=== PATIENT | male | born 1955 | race Caucasian/White ===

== ENCOUNTER 2024-03-20 21:42 | Emergency (ER) | payer OTHER ==
[2024-03-20] MEDS ORDERED: NA CHLORIDE 0.9% 1,000 ML ONE (22:26)
[2024-03-20 22:52] LABS: Albumin 3.6 g/dL (3.4-5.0); Albumin/Globulin Ratio 0.8 (1.1-1.8); Bilirubin Total 0.7 mg/dL (0.2-1.0); Globulin 4.6 g/dL (2.3-3.5); Protein, Total 8.2 g/dL (6.4-8.2)
[2024-03-20 22:59] LABS: Absolute Eosinophils 0.2 K/uL (0-0.5); Absolute Lymphocytes (CBC) 2.1 K/uL (0.7-4.9); Absolute Monocytes 0.9 K/uL (0.1-1.3); Absolute Neutrophil 6.7 K/uL (1.8-8.0); Basophils % 0.3 % (0-1.3); Eosinophils % 1.7 % (0-4.4); Hematocrit 49.6 % (39.6-49.0); Hemoglobin 16.5 g/dL (13.6-17.9); Lymphocytes % 21.3 % (15.3-44.8); MCH 30.6 pg (27.0-35.0); MCHC 33.3 g/dL (32.0-36.0); MCV 92.1 fL (80-100); MPV 7.7 fL (7.6-11.3); Monocytes % 9.2 % (3.3-12.3); Neutrophils % 67.5 % (41.7-73.7); Platelets 261 thou/uL (152-406); RBC Red Blood Cell Count 5.39 M/uL (4.33-5.43); Red Cell Distribution Width 14.9 % (12.1-15.2)
--- NOTE | 2024-03-21 00:04 | ER ---
Nurse's Notes [facility] Name: Jonathan Woodson Age: 68 yrs Sex: Male : 1955 Arrival Date: 03/20/2024 Time: 21:42 Bed 6 Private MD: Diagnosis: Swallowing difficulty Presentation: 03/20 21:55 Chief complaint: Patient states: pt reports sore throat and difficultly swallowing. as6 Coronavirus screen: At this time, the client does not indicate any symptoms associated with coronavirus-19. Ebola Screen: No symptoms or risks identified at this time. Initial Sepsis Screen: Does the patient meet any 2 criteria? No. Patient's initial sepsis screen is negative. Does the patient have a suspected source of infection? No. Patient's initial sepsis screen is negative. Risk Assessment: Do you want to hurt yourself or someone else? Patient reports no desire to harm self or others. Onset of symptoms was March 18, 2024. 21:55 Acuity: MARGARITA 3 as6 21:55 Method Of Arrival: Ambulatory as6 Triage Assessment: 03/21 00:27 Respiratory: Onset: The symptoms/episode began/occurred gradually, the patient has mild ha1 shortness of breath. Historical: - Allergies: 03/20 21:58 No Known Allergies; as6 - PMHx: 21:58 Leukemia; Myocardial infarction; as6 - PSHx: 21:58 hip; hernia; Stented artery; as6 - Immunization history:: Adult Immunizations not up to date. - Infectious Disease History:: Denies. - Social history:: Smoking status: Patient reports the use of cigarette tobacco products, denies chronic smoking, but will smoke occasionally. Screenin:00 [facility] ED Fall Risk Assessment (Adult) History of falling in the last 3 months, ha1 including since admission No falls in past 3 months (0 pts) Confusion or Disorientation No (0 pts) Intoxicated or Sedated No (0 pts) Impaired Gait No (0 pts) Mobility Assist Device Used No (0 pt) Altered Elimination No (0 pt) Score/Fall Risk Level 0 - 2 = Low Risk Oriented to surroundings, Maintained a safe environment, Educated pt \T\ family on fall prevention, incl call for assistance when getting out of bed, Hourly rounding (assess needs \T\ fall precautionary measures) done. Abuse screen: Denies threats or abuse. Denies injuries from another. Nutritional screening: On. Tuberculosis screening: No symptoms or risk factors identified. Assessment: 21:59 General: Appears uncomfortable, Behavior is cooperative. Pain: Denies pain. Neuro: ha1 Level of Consciousness is awake, alert, obeys commands, Oriented to person, place, time, situation. Cardiovascular:. Cardiovascular: Patient's skin is warm and dry. Rhythm is irregular. Respiratory: Reports shortness of breath at rest on exertion Airway is patent Respiratory effort is even, unlabored, Respiratory pattern is regular, symmetrical, Derm: Skin is pink, warm \T\ dry. 23:14 Reassessment: Patient and/or family updated on plan of care and expected duration. Pain ha1 level reassessed. Patient is alert, oriented x 3, equal unlabored respirations, skin warm/dry/pink. 23:31 Reassessment: Patient appears in no apparent distress at this time. No changes from tm6 previously documented assessment. Vital Signs: 21:55 BP 142 / 77; Pulse 40; Resp 18; Temp 97.4; Pulse Ox 93% ; as6 21:57 Weight 132.45 kg; Height 5 ft. 10 in. ; Pain 9/10; as6 23:14 BP 117 / 73; Pulse 65; Resp 19 S; Pulse Ox 96% on R/A; ha1 23:31 BP 166 / 82; Pulse 71; Pulse Ox 93% on R/A; tm6 03/21 00:24 BP 156 / 92; Pulse 74; Resp 17 S; Pulse Ox 97% on R/A; ha1 03/20 21:57 Body Mass Index 41.90 (132.45 kg, 177.8 cm) as6 21:57 Pain Scale: Adult as6 ED Course: 03/20 21:46 Patient arrived in ED. ra3 21:54 Anh Shanks MD is Attending Physician. sp3 21:57 Triage completed. as6 21:57 Arm band placed on right wrist. as6 21:59 Patient has correct armband on for positive identification. Bed in low position. Call ha1 light in reach. Side rails up X 1. Adult w/ patient. 22:02 Joshua Dotson RN is Primary Nurse. tm6 22:25 Inserted saline lock: 20 gauge antecubital area, using aseptic technique. Blood ha1 collected. 22: CBC with Diff Sent. ha1 22:31 CMP Sent. ha1 23:20 CT Soft Tissue Neck W/contr In Process Unspecified. EDMS 03/21 00:04 Clint Lamar MD is Referral Physician. sp3 00:26 No provider procedures requiring assistance completed. IV discontinued, intact, ha1 bleeding controlled, No redness/swelling at site. Pressure dressing applied. 00:27 Provided Education on: follow up . ha1 Administered Medications: 03/20 22: Drug: NS 0.9% IV 1000 ml IV at 1 bolus Per protocol; 1000 mL bolus Route: IV; Rate: 1 ha1 bolus; Site: right antecubital; 03/21 00:28 Follow up: Response: No adverse reaction; IV Status: Completed infusion; IV Intake: ha1 1000ml Medication: 00: VIS not applicable for this client. ha1 Intake: 00:28 IV: 1000ml; Total: 1000ml. ha1 Outcome: 00:04 Discharge ordered by . sp3 00:26 Discharged to home ambulatory, with family, ha1 00:26 Condition: stable 00:26 Discharge instructions given to patient, family, Instructed on discharge instructions, follow up and referral plans. Demonstrated understanding of instructions, follow-up care, 00:28 Patient left the ED. ha1 Signatures: Dispatcher [employer] [facility] Anh Shanks MD MD sp3 Hermann Wadsworth RN RN as6 Carlotta De Los Santos RN RN ha1 Joshua Dotson RN RN tm6 Kymberly Dee 3 Corrections: (The following items were deleted from the chart) 03/20 23:15 21:59 Cardiovascular: Patient's skin is warm and dry. ha1 ha1
--- NOTE | 2024-03-21 00:04 | EDPHYS ---
Physician Documentation [facility] Name: Jonathan Woodson Age: 68 yrs Sex: Male : 1955 Arrival Date: 03/20/2024 Time: 21:42 Bed 6 Private MD: ED Physician Anh Shanks HPI: 03/20 22:20 This 68 yrs old Male presents to ER via Ambulatory with complaints of Mouth Swelling - sp3 throat swelling-no pain, Shortness Of Breath. 22:20 68-year-old male with history of prior leukemia in remission for 15 years, NM now sp3 presents to ED with chief complaint posterior tongue and throat swelling and edema leading to an inability to tolerate p.o. liquids and food for approximately 4 to 5 days. Patient states he is lost 12 to 14 pounds. She denies any significant pain just swelling. He denies any allergic reaction, prior anaphylaxis or allergic reaction, trauma, bleeding or any other symptoms. Remainder of ROS is negative. He also denies headache, chest pain, back pain, vomiting, diarrhea or any other symptoms.. Historical: - Allergies: 21:58 No Known Allergies; as6 - PMHx: 21:58 Leukemia; Myocardial infarction; as6 - PSHx: 21:58 hip; hernia; Stented artery; as6 - Immunization history:: Adult Immunizations not up to date. - Infectious Disease History:: Denies. - Social history:: Smoking status: Patient reports the use of cigarette tobacco products, denies chronic smoking, but will smoke occasionally. ROS: 22:21 Constitutional: Negative for fever, chills, and weight loss, Eyes: Negative for injury, sp3 pain, redness, and discharge, Cardiovascular: Negative for chest pain, palpitations, and edema, Respiratory: Negative for shortness of breath, cough, wheezing, and pleuritic chest pain, Abdomen/GI: Negative for abdominal pain, nausea, vomiting, diarrhea, and constipation, Back: Negative for injury and pain, MS/Extremity: Negative for injury and deformity, Skin: Negative for injury, rash, and discoloration, Neuro: Negative for headache, weakness, numbness, tingling, and seizure, Psych: Negative for depression, anxiety, suicide ideation, homicidal ideation, and hallucinations, Allergy/Immunology: Negative for hives, rash, and allergies, Endocrine: Negative for neck swelling, polydipsia, polyuria, polyphagia, and marked weight changes, Hematologic/Lymphatic: Negative for swollen nodes, abnormal bleeding, and unusual bruising, 22:21 All other systems are negative, Exam: 22:21 Constitutional: This is a well developed, well nourished patient who is awake, alert, sp3 and in no acute distress. Head/Face: Normocephalic, atraumatic. Eyes: Pupils equal round and reactive to light, extra-ocular motions intact. Lids and lashes normal. Conjunctiva and sclera are non-icteric and not injected. Cornea within normal limits. Periorbital areas with no swelling, redness, or edema. Chest/axilla: Normal chest wall appearance and motion. Nontender with no deformity. No lesions are appreciated. Cardiovascular: Regular rate and rhythm with a normal S1 and S2. No gallops, murmurs, or rubs. Normal PMI, no JVD. No pulse deficits. Respiratory: Lungs have equal breath sounds bilaterally, clear to auscultation and percussion. No rales, rhonchi or wheezes noted. No increased work of breathing, no retractions or nasal flaring. Abdomen/GI: Soft, non-tender, with normal bowel sounds. No distension or tympany. No guarding or rebound. No evidence of tenderness throughout. Back: No spinal tenderness. No costovertebral tenderness. Full range of motion. Skin: Warm, dry with normal turgor. Normal color with no rashes, no lesions, and no evidence of cellulitis. 22:21 ENT: Mild posterior swelling noted. No uvular shift.. 22:21 Neck: Lymphadenopathy noted bilaterally left slightly greater than right., Vital Signs: 21:55 BP 142 / 77; Pulse 40; Resp 18; Temp 97.4; Pulse Ox 93% ; as6 21:57 Weight 132.45 kg; Height 5 ft. 10 in. ; Pain 9/10; as6 23:14 BP 117 / 73; Pulse 65; Resp 19 S; Pulse Ox 96% on R/A; ha1 23:31 BP 166 / 82; Pulse 71; Pulse Ox 93% on R/A; tm6 03/21 00:24 BP 156 / 92; Pulse 74; Resp 17 S; Pulse Ox 97% on R/A; ha1 03/20 21:57 Body Mass Index 41.90 (132.45 kg, 177.8 cm) as6 21:57 Pain Scale: Adult as6 MDM: 03/20 22:02 Patient medically screened. sp3 22:22 Data reviewed: vital signs, nurses notes, lab test result(s), radiologic studies. ED sp3 course: 68-year-old male with neck swelling and posterior oropharynx swelling and inability to tolerate p.o. Differential diagnosis includes peritonsillar abscess, other mass effect given cancer history, allergic reaction, among others. I am not highly suspicious for NM, GI pathology, sepsis, shock or any other critical illness. Workup will include laboratory values and CT scan of the neck with IV contrast. Patient is n.p.o. pending workup. Disposition pending workup and patient course.. 03/21 00:03 ED course: CT scan and laboratory values demonstrate no significant abnormality. sp3 Patient's daughter is a nurse who works with GI and we will try and get him scoped this week with either GI or Dr. Beltrán and general surgery.. 03/20 22:12 Order name: CBC with Diff; Complete Time: 23:08 sp3 03/20 22:12 Order name: CMP; Complete Time: 23:08 sp3 03/20 22:12 Order name: CT Soft Tissue Neck W/contr sp3 03/20 22:12 Order name: IV Saline Lock; Complete Time: 22:31 sp3 03/20 22:12 Order name: Labs collected and sent; Complete Time: 22:31 sp3 03/20 22:12 Order name: NPO; Complete Time: 22:31 sp3 Administered Medications: 03/20 22:31 Drug: NS 0.9% IV 1000 ml IV at 1 bolus Per protocol; 1000 mL bolus Route: IV; Rate: 1 ha1 bolus; Site: right antecubital; 03/21 00:28 Follow up: Response: No adverse reaction; IV Status: Completed infusion; IV Intake: ha1 1000ml Disposition Summary: 03/21/24 00:04 Discharge Ordered Notes: Location: Home sp3 Condition: Stable sp3 Diagnosis - Swallowing difficulty sp3 Followup: sp3 - With: Clint Lamar MD - When: Upon discharge from the Emergency Department - Reason: Recheck today's complaints Discharge Instructions: - Discharge Summary Sheet sp3 - Full Liquid Diet sp3 Forms: - Medication Reconciliation Form sp3 - Antibiotic Education sp3 - Prescription Opioid Use sp3 - Patient Portal Instructions sp3 - Leadership Thank You Letter sp3 Signatures: Dispatcher [employer] Anh Piper MD MD sp3 Hermann Wadsworth RN RN as6 Carlotta De Los Santos RN RN ha1
[2024-03-21 00:47] VITALS: BP 156/92; TEMP 97.4; O2SAT 97
--- NOTE | 2024-03-21 11:18 | RAD REPORT ---
EXAM DESCRIPTION: CT - Soft Tissue Neck W/Contr - 03/21/2024 7:10 am CLINICAL HISTORY: Tongue swelling/pain;Sore throat;Facial pain COMPARISON: None. TECHNIQUE: CT NECK WITH IV CONTRAST on 03/20/2024 10:12 PM CDT This exam was performed according to our departmental dose-optimization program, which includes autom ated exposure control, adjustment of the mA and/or kV according to patient size and/or use of iterati ve reconstruction technique. FINDINGS: The visualized portions of the brain and orbits are normal. The oral cavity, oropharynx and nasopharynx are normal. The parapharyngeal fat planes are preserved . The hypopharynx is unremarkable. The parotid and submandibular glands are grossly within normal limits. No intrinsic mass lesions are seen. . There is mild thickening of the maxillary sinuses. No definite pathologically enlarged lymph nodes ar e identified. The thyroid gland is normal in size and configuration. The thoracic inlet is normal. The superior mediastinum and lung apices are normal. No acute osseous abnormalities are identified. IMPRESSION: No acute findings. Electronically signed by: Tanner Artis MD 03/20/2024 11:51 PM CDT Due to temporary technical issues with the PACS/Fluency reporting system, reports are being signed by the in house radiologist without review as a courtesy to ensure prompt reporting. The interpreting r adiologist is fully responsible for the content of the report.
== END 2024-03-21 00:28 | disposition home or self-care (01) ==
LOC: ER 21:42
DX: R13.10 Dysphagia, unspecified (principal); R59.0 Localized enlarged lymph nodes; C95.91 Leukemia, unspecified, in remission; I25.2 Old myocardial infarction; F17.210 Nicotine dependence, cigarettes, uncomplicated
CPT/HCPCS: 96361; 85025; 36415; 80053; 70491; 96360; 99284; Q9967; J7030

== ENCOUNTER → 2024-05-17 | Day surgery (SDC) | payer OTHER ==
[2024-05-14 11:26] LABS: Absolute Eosinophils 0.1 K/uL (0-0.5); Absolute Lymphocytes (CBC) 1.8 K/uL (0.7-4.9); Absolute Monocytes 0.5 K/uL (0.1-1.3); Absolute Neutrophil 4.9 K/uL (1.8-8.0); Basophils % 0.6 % (0-1.3); Eosinophils % 1.9 % (0-4.4); Hematocrit 42.3 % (39.6-49.0); Hemoglobin 13.7 g/dL (13.6-17.9); Lymphocytes % 24.1 % (15.3-44.8); MCHC 32.5 g/dL (32.0-36.0); MCV 92.2 fL (80-100); MPV 7.9 fL (7.6-11.3); Monocytes % 7.3 % (3.3-12.3); Neutrophils % 66.1 % (41.7-73.7); Platelets 202 thou/uL (152-406); RBC Red Blood Cell Count 4.59 M/uL (4.33-5.43); Red Cell Distribution Width 14.2 % (12.1-15.2)
[2024-05-14 11:29] LABS: PT Prothrombin Time 10.8 SECONDS (9.4-12.5); PTT, Activated Partial Thromb 27.9 SECONDS (24.3-36.9); Protime INR 0.96
--- NOTE | 2024-05-15 17:48 | EKG ---
Test Date: 2024-05-14 Test Time: 10:46:13 Software Security Consultant: ANAI MEASUREMENT RESULTS: Intervals: Rate: 54 MT: 216 QRSD: 94 QT: 458 QTc: 434 [place]: P: 31 MT: 216 QRS: 31 T: 53 INTERPRETIVE STATEMENTS: Sinus bradycardia with 1st degree AV block with premature atrial complexes Otherwise normal ECG No previous ECG available for comparison Electronically Signed On 05-15-24 17:45:58 CDT by Jcarlos Pierre
[~2024-05-17] MED LIST: CEFAZOLIN SODIUM 2 GM/VIAL ONE; FENTANYL CITR 100 MCG/2 ML ONE; GLYCOPYRROLATE 0.2 MG/ML SYR ONE; LIDOCAINE 1% MPF 5 ML VIAL ONE; LIDOCAINE HCL/EPINEPHRINE 20 ML MDV ONE; MIDAZOLAM HCL 2 MG/2 ML INJ ONE; ONDANSETRON 4 MG/2 ML VIAL ONE; POVIDONE-IODINE 5% EYE DROPS ONE; ROCURONIUM 50 MG/5 ML VIAL IV ONE; SUCCINYLCHOLINE 20 MG/ML (10 ML) IV ONE; SUGAMMADEX SODIUM 200 MG/2 ML VIAL IV ONE; dexAMETHasone 10 MG/ML VIAL ONE; propofoL 200 MG/20 ML VIAL IV ONE
[2024-05-17] MEDS: Ringers Lactate 1,000 ML IV ONE (09:05)
[2024-05-17 09:09] LABS: Anion Gap 6.9 mEq/L (5.0-15.0); Potassium 3.9 mEq/L (3.5-5.1)
[2024-05-17 09:19] VITALS: BP 169/71; TEMP 98.6; O2SAT 94
== END ==
LOC: OR 08:38
PROVIDERS: ATTEND Otolaryngology Facial Plastic Surgery
DX: D38.0 Neoplasm of uncertain behavior of larynx (principal); L72.3 Sebaceous cyst; Z53.8 Procedure and treatment not carried out for other reasons
CPT/HCPCS: 93005; 85025; 80048; 36415 ×2; 85610; 85730; J7120; J1100; J2001; J2250; J2405; J2704; J3010

== ENCOUNTER 2024-05-18 07:03 | Day surgery (SDC) | payer OTHER ==
[2024-05-18] MEDS ORDERED: OXYMETAZOLINE HCL 0.05% 15ML NAS ONE (07:09)
[2024-05-18] MEDS ORDERED: FENTANYL CITR 100 MCG/2 ML ONE (07:16)
[2024-05-18] MEDS ORDERED: ROCURONIUM 50 MG/5 ML VIAL IV ONE (07:16)
[2024-05-18] MEDS ORDERED: MIDAZOLAM HCL 2 MG/2 ML INJ ONE (07:16)
[2024-05-18] MEDS ORDERED: propofoL 200 MG/20 ML VIAL IV ONE (07:16)
[2024-05-18] MEDS ORDERED: ONDANSETRON 4 MG/2 ML VIAL ONE (07:16)
[2024-05-18] MEDS ORDERED: LIDOCAINE 2% MPF 5 ML VIAL ONE (07:16)
[2024-05-18] MEDS: Ringers Lactate 1,000 ML IV ONE (08:00)
[2024-05-18] MEDS: CEFAZOLIN SODIUM 2 GM/VIAL ONE (08:11)
[2024-05-18] MEDS ORDERED: EPHEDRINE SULF 50 MG/ML VIAL ONE (08:11)
[2024-05-18] MEDS: LIDOCAINE HCL/EPINEPHRINE 20 ML MDV ONE (08:13)
[2024-05-18] MEDS: EPINEPHRINE 1 MG/ML VIAL ONE (08:30)
[2024-05-18] MEDS: POVIDONE-IODINE 5% EYE DROPS ONE (08:40)
[2024-05-18 10:17] VITALS: TEMP 97.4
[2024-05-18] MEDS ORDERED: ACETAMINOPHEN 325 MG TABLET ONE (10:19)
[2024-05-18] MEDS: ACETAMINOPHEN 325 MG TABLET PO ONE (10:23)
[2024-05-18 11:28] VITALS: BP 152/94; O2SAT 99
== END 2024-05-18 11:10 | disposition home or self-care (01) ==
LOC: OR 07:03
PROVIDERS: ATTEND Otolaryngology Facial Plastic Surgery
PROC: 0CBR8ZX Excision of Epiglottis, Via Natural or Artificial Opening Endoscopic, Diagnostic (ICD-10-PCS; principal; 2024-05-18 08:00)
PROC: 0HB1XZZ Excision of Face Skin, External Approach (ICD-10-PCS; 2024-05-18 08:00)
DX: L72.0 Epidermal cyst (principal); D17.0 Benign lipomatous neoplasm of skin and subcutaneous tissue of head, face and neck; R13.10 Dysphagia, unspecified; Z87.891 Personal history of nicotine dependence
CPT/HCPCS: 31541; 11444; 88304; 88305; J2704; J2001; J2250; J3010; J0171; J2405; J7120; 88302

== ENCOUNTER 2024-09-14 08:11 | Day surgery (SDC) | payer OTHER ==
[2024-09-12 09:39] LABS: Absolute Basophils 0.1 K/uL (0-0.5); Absolute Eosinophils 0.1 K/uL (0-0.5); Absolute Lymphocytes (CBC) 1.7 K/uL (0.7-4.9); Absolute Monocytes 0.6 K/uL (0.1-1.3); Absolute Neutrophil 3.8 K/uL (1.8-8.0); Basophils % 0.8 % (0-1.3); Hematocrit 43.4 % (39.6-49.0); Lymphocytes % 26.5 % (15.3-44.8); MCHC 32.2 g/dL (32.0-36.0); MCV 90.1 fL (80-100); Monocytes % 10.3 % (3.3-12.3); Neutrophils % 60.4 % (41.7-73.7); Platelets 195 thou/uL (152-406); RBC Red Blood Cell Count 4.81 M/uL (4.33-5.43); Red Cell Distribution Width 14.5 % (12.1-15.2)
[2024-09-12 09:42] LABS: PT Prothrombin Time 10.7 SECONDS (9.4-12.5); PTT, Activated Partial Thromb 25.4 SECONDS (24.3-36.9); Protime INR 0.95
[2024-09-12 09:47] LABS: Anion Gap 5.8 mEq/L (5.0-15.0); Potassium 4.8 mEq/L (3.5-5.1)
[2024-09-14] MEDS ORDERED: propofoL 200 MG/20 ML VIAL IV ONE ×2 (09:29→10:36)
[2024-09-14 16:03] VITALS: O2SAT 99
[2024-09-14 16:07] VITALS: TEMP 97.1
[2024-09-14 16:13] VITALS: BP 120/73
== END 2024-09-14 11:30 | disposition home or self-care (01) ==
LOC: OR 08:11
PROVIDERS: ATTEND Surgery
PROC: 0DBL8ZX Excision of Transverse Colon, Via Natural or Artificial Opening Endoscopic, Diagnostic (ICD-10-PCS; 2024-09-14)
PROC: 0DBN8ZX Excision of Sigmoid Colon, Via Natural or Artificial Opening Endoscopic, Diagnostic (ICD-10-PCS; 2024-09-14)
PROC: 0DBM8ZX Excision of Descending Colon, Via Natural or Artificial Opening Endoscopic, Diagnostic (ICD-10-PCS; 2024-09-14)
PROC: 0DBK8ZX Excision of Ascending Colon, Via Natural or Artificial Opening Endoscopic, Diagnostic (ICD-10-PCS; principal; 2024-09-14 09:45)
DX: Z12.11 Encounter for screening for malignant neoplasm of colon (principal); N42.9 Disorder of prostate, unspecified; K57.30 Diverticulosis of large intestine without perforation or abscess without bleeding; K64.8 Other hemorrhoids; D12.4 Benign neoplasm of descending colon; D12.3 Benign neoplasm of transverse colon; D12.2 Benign neoplasm of ascending colon; D12.5 Benign neoplasm of sigmoid colon
CPT/HCPCS: 45385; 85025; 80048; 36415; 85610; 88305; 85730; J2704 ×2

== ENCOUNTER → 2025-02-15 | Day surgery (SDC) | payer OTHER ==
--- NOTE | 2025-02-13 15:43 | RAD REPORT ---
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 FINDINGS: LUNGS/PLEURA: The lungs are clear. No pleural effusions or pneumothorax. No pulmonary edema. CARDIAC/MEDIASTINUM: The cardiac silhouette is within normal limits. UPPER ABDOMEN: No significant abnormality. BONES: No acute abnormality. LINES/TUBES/OTHER: N/A IMPRESSION: No evidence of acute cardiopulmonary disease.
[2025-02-13 15:44] LABS: Absolute Basophils 0.1 K/uL (0-0.5); Absolute Eosinophils 0.4 K/uL (0-0.5); Absolute Lymphocytes (CBC) 2.4 K/uL (0.7-4.9); Absolute Monocytes 0.7 K/uL (0.1-1.3); Absolute Neutrophil 4.2 K/uL (1.8-8.0); Basophils % 1.2 % (0-1.3); Eosinophils % 5.3 % (0-4.4); Hematocrit 45.9 % (39.6-49.0); Hemoglobin 15.5 g/dL (13.6-17.9); Lymphocytes % 30.5 % (15.3-44.8); MCH 29.5 pg (27.0-35.0); MCHC 33.8 g/dL (32.0-36.0); MCV 87.4 fL (80-100); MPV 8.5 fL (7.6-11.3); Monocytes % 8.9 % (3.3-12.3); Neutrophils % 54.1 % (41.7-73.7); Nucleated Red Blood Cells % 0.1 % (0-0); Platelets 193 thou/uL (152-406); RBC Red Blood Cell Count 5.26 M/uL (4.33-5.43); Red Cell Distribution Width 14.5 % (12.1-15.2)
[2025-02-13 15:52] LABS: PT Prothrombin Time 11.9 SECONDS (10-13.0); PTT, Activated Partial Thromb 26.8 SECONDS (27.2-37.4); Protime INR 1.05
[2025-02-13 15:58] LABS: Anion Gap 8.1 mEq/L (5.0-15.0); Potassium 4.1 mEq/L (3.5-5.1)
[~2025-02-15] MED LIST changes: +ATROPINE SULF 1 MG/10 ML SYR IV ONE; -CEFAZOLIN SODIUM 2 GM/VIAL ONE; +EPHEDRINE SULF 50 MG/ML VIAL ONE; -GLYCOPYRROLATE 0.2 MG/ML SYR ONE; +HYDROMORPHONE HCL 1 MG/ML INJ ONE; -LIDOCAINE 1% MPF 5 ML VIAL ONE; +LIDOCAINE 2% MPF 5 ML VIAL ONE; -LIDOCAINE HCL/EPINEPHRINE 20 ML MDV ONE; -POVIDONE-IODINE 5% EYE DROPS ONE; +Ringers Lactate 1,000 ML IV ONE; -dexAMETHasone 10 MG/ML VIAL ONE; +dexAMETHasone 4 MG/ML VIAL ONE
[2025-02-15] MEDS: CEFAZOLIN SODIUM 1 GM/VIAL ONE (13:26)
--- NOTE | 2025-02-15 14:02 | P.BOP ---
Preoperative diagnosis: tender right inguinal hernia Postoperative diagnosis: same Primary procedure: Laparoscopic repair of tender right inguinal hernia with mesh Nurse Infection Control: Manasa Holland) Estimated blood loss: <10cc Specimen: none Findings: as above Anesthesia: General Complications: None Implants: 3d mesh medium Transferred to: Recovery Room Condition: Good
[2025-02-15 16:24] VITALS: BP 114/67; TEMP 98; O2SAT 94
--- NOTE | 2025-02-20 11:17 | EKG ---
Test Date: 2025-02-15 Test Time: 15:56:00 Fruit Raiser: NEEL MEASUREMENT RESULTS: Intervals: Rate: 64 GA: 200 QRSD: 98 QT: 442 QTc: 455 [place]: P: 41 GA: 200 QRS: 26 T: 32 INTERPRETIVE STATEMENTS: Sinus rhythm with sinus arrhythmia with frequent premature ventricular complexes Otherwise normal ECG Compared to ECG 05/14/2024 10:46:13 Ventricular premature complex(es) now present Sinus bradycardia no longer present Atrial premature complex(es) no longer present First degree AV block no longer present Electronically Signed On 02-20-25 11:14:22 CDT by Jcarlos Pierre
== END | disposition home or self-care (01) ==
LOC: OR 10:46
PROVIDERS: ATTEND Surgery
PROC: 0YU54JZ Supplement Right Inguinal Region with Synthetic Substitute, Percutaneous Endoscopic Approach (ICD-10-PCS; principal; 2025-02-15 13:00)
DX: K40.91 Unilateral inguinal hernia, without obstruction or gangrene, recurrent (principal); E78.00 Pure hypercholesterolemia, unspecified; I51.9 Heart disease, unspecified
CPT/HCPCS: 93005; 85025; 80048; 36415; 85610; 85730; 71046; 49650; A4314; J2704; J1100; J0461; J2003; J2250; J3010; J1171; J2405; J7120; J0690